=== PATIENT | female | born 1960 | race Caucasian/White ===

== ENCOUNTER → 2019-04-17 | Outpatient (CLI) | payer OTHER ==
--- NOTE | 2019-04-17 18:01 | RAD ---
CHEST PA LATERAL History: Chest pain. Breathing issues. Comparison: None. Findings: No consolidation or pleural effusion. Normal heart size. No pneumothorax. Hyperinflation. Impression: 1. Hyperinflation. 2. Otherwise, negative chest. Electronically signed by: Juan C Steen DO (04/17/2019 5:58 PM) [id number]
== END | disposition home or self-care (01) ==
LOC: RAD 09:08
PROVIDERS: ATTEND Family Medicine
DX: R91.8 Other nonspecific abnormal finding of lung field (principal)
CPT/HCPCS: 71046